=== PATIENT | female | born 1985 | race African-American/Black ===

== ENCOUNTER 2020-06-04 18:21 | Emergency (ER) | payer BC ==
[2020-06-04 18:33] VITALS: TEMP 98.5; BMI 37.5
[2020-06-04] MEDS ORDERED: FAMOTIDINE 20 MG TABLET PO ONE (19:06)
[2020-06-04] MEDS ORDERED: DEXAMETHASONE LIQUID 0.5 MG/5 ML PO ONE (19:06)
[2020-06-04] MEDS ORDERED: DEXAMETHASONE SOD PHOSPHATE 10 MG/1 ML VIAL ONE (19:07)
[2020-06-04] MEDS ORDERED: FAMOTIDINE 20 MG TABLET ONE (19:08)
[2020-06-04] MEDS ORDERED: diphenhydrAMINE HCL 25 MG CAPSULE (FP) PO ONE ×2 (19:12)
[2020-06-04 20:07] VITALS: BP 109/56; PULSE 86
== END 2020-06-04 20:54 | disposition home or self-care (01) ==
LOC: JERFT 18:21
DX: T78.40XA Allergy, unspecified, initial encounter (principal)
CPT/HCPCS: 71046-TC-FY; 99283-25

== ENCOUNTER 2020-07-16 18:56 | Emergency (ER) | payer BC ==
[2020-07-16 19:28] VITALS: TEMP 97.3; BMI 36.8
[2020-07-16] MEDS ORDERED: DEXAMETHASONE 4 MG TABLET (FP) PO ONE (19:49)
[2020-07-16] MEDS ORDERED: FAMOTIDINE 20 MG TABLET PO ONE (19:49)
[2020-07-16] MEDS ORDERED: FAMOTIDINE 20 MG TABLET ONE (20:01)
[2020-07-16] MEDS ORDERED: DEXAMETHASONE SOD PHOSPHATE 10 MG/1 ML VIAL ONE (20:01)
[2020-07-16 20:35] VITALS: BP 88/57; PULSE 96
== END 2020-07-16 22:12 | disposition home or self-care (01) ==
LOC: JER 18:56
DX: T78.40XA Allergy, unspecified, initial encounter (principal)
CPT/HCPCS: 99283-25

== ENCOUNTER 2021-06-29 09:05 | Emergency (ER) | payer BC ==
[2021-06-29 09:18] VITALS: BP 126/87; PULSE 89; TEMP 98; BMI 37.5
== END 2021-06-29 12:44 | disposition home or self-care (01) ==
LOC: JER 09:05
DX: M54.6 Pain in thoracic spine (principal)
CPT/HCPCS: 93005; 93010; 99283-25